=== PATIENT | female | born 1990 | race Caucasian/White ===

== ENCOUNTER 2018-06-28 23:19 | Inpatient (IN) | payer MEDICAID, OTHER ==
[~2018-06-28] VITALS: Ht 157.5 cm; Wt 53.9 kg
[~2018-06-28 23:19] MED LIST: DIVA-78 PO; LITH300C3 PO; TOPI100T37 PO; ZIPR80CA2 PO
[2018-06-28] MEDS ORDERED: LURA40 PO (23:49)
[2018-06-29 00:18] LABS: BASOPHILS % (AUTO) 0.6 % (0.0-2.0); EOSINOPHILS % (AUTO) 1.2 % (1.0-6.0); HEMATOCRIT 42.1 % (36-46); HEMOGLOBIN 13.8 g/dL (12.0-16.0); LYMPHOCYTES # (AUTO) 4.4 K/uL (1.0-4.8); LYMPHOCYTES % (AUTO) 40.4 % (22.0-44.0); MEAN CORPUSCULAR HEMOGLOBIN 28.5 pg (26.0-34.0); MEAN CORPUSCULAR HGB CONC 32.8 G/dL (31.0-37.0); MEAN CORPUSCULAR VOLUME 87 fL (80-100); MONOCYTES # (AUTO) 0.7 K/uL (0.1-1.0); MONOCYTES % (AUTO) 6.5 % (2.0-9.0); NEUTROPHILS # (AUTO) 5.6 K/uL (1.8-7.7); NEUTROPHILS % (AUTO) 51.3 % (40.0-70.0); PLATELET COUNT (AUTO) 330 K/uL (150-450); RED BLOOD CELL COUNT(AUTO) 4.83 MIL/uL (4.00-5.20); RED CELL DISTRIBUTION WIDTH 14.8 % (11.5-14.5)
[2018-06-29 00:26] LABS: AMPHET/METH SCREEN,URINE NEGATIVE (NEGATIVE); BARBITURATE SCREEN, URINE NEGATIVE (NEGATIVE); BENZODIAZEPINES SCREEN,URINE NEGATIVE (NEGATIVE); CANNABINOID SCREEN,URINE POSITIVE (NEGATIVE); COCAINE SCREEN,URINE NEGATIVE (NEGATIVE); METHADONE SCREEN, URINE NEGATIVE (NEGATIVE); OPIATE SCREEN,URINE NEGATIVE (NEGATIVE)
[2018-06-29 00:28] LABS: PHENCYCLIDINE SCREEN,URINE NEGATIVE (NEGATIVE)
[2018-06-29 00:35] LABS: ANION GAP 11 mmol/L (8-16); CALCIUM, TOTAL 8.5 mg/dL (8.8-10.5); CARBON DIOXIDE 25 mmol/L (22-29); CHLORIDE 105 mmol/L (98-107); CREATININE 0.76 mg/dL (0.60-1.30); GLOMERULAR FILTR. RATE CALC > 60 mL/min (>60); GLUCOSE,RANDOM 87 mg/dL (70-110); POTASSIUM 3.5 mmol/L (3.5-5.1); SODIUM SERUM 141 mmol/L (136-145); UREA NITROGEN, BLOOD 5 mg/dL (7-18)
[2018-06-29 00:37] LABS: LITHIUM < 0.20 mmol/L (0.60-1.20)
[2018-06-29 00:41] LABS: ALANINE AMINOTRANSFERASE 22 U/L (12-78); ALBUMIN 3.4 g/dL (3.4-5.0); ALKALINE PHOSPHATASE 54 U/L (46-116); ASPARTATE AMINOTRANSFERASE 19 U/L (15-37); BILIRUBIN,TOTAL 0.5 mg/dL (0.1-1.0); TOTAL PROTEIN, SERUM 7.4 g/dL (6.4-8.2)
[2018-06-29 00:51] LABS: VALPROIC ACID < 3 mcg/mL (50-100)
[2018-06-29] MEDS ORDERED: HALOPERIDOL LACTATE 5 MG/ML VIAL ONE (01:12)
[2018-06-29] MEDS ORDERED: DiphenhydrAMINE HCL 50 MG/ML VIAL ONE (01:12)
[2018-06-29] MEDS ORDERED: HALOPERIDOL LACTATE 5 MG/ML VIAL IM ONE ×2 (01:15→04:15)
[2018-06-29] MEDS ORDERED: DiphenhydrAMINE HCL 50 MG/ML VIAL IM ONE (01:15)
[2018-06-29] MEDS ORDERED: LORazepam 2 MG/ML VIAL IM ONE (04:15)
[2018-06-29 09:08] VITALS: BP 116/71
[2018-06-29] MEDS: ARIPiprazole 15 MG TABLET PO SCH (10:34)
[2018-06-29 15:30] VITALS: BP 103/75
[2018-06-29 17:30] VITALS: BP 113/79
[2018-06-29] MEDS: LORazepam 2 MG TABLET PO PRN (17:34)
[2018-06-29] MEDS: HALOPERIDOL 5 MG TABLET PO PRN (17:34)
[2018-06-29 18:30] VITALS: BP 108/80
[2018-06-29] MEDS ORDERED: LOPERAMIDE HCL 2 MG CAPSULE PO PRN (20:00)
[2018-06-29] MEDS ORDERED: MAGNESIUM HYDROXIDE SUSPENSION 30 ML UDCUP PO PRN (20:00)
[2018-06-29] MEDS ORDERED: PETROLATUM,WHITE 71 GM JELLY TP PRN (20:00)
[2018-06-29] MEDS ORDERED: MAG HYDROX/AL HYDROX/SIMETH ES 30 ML SUSPENSION UDCUP PO PRN (20:00)
[2018-06-29] MEDS ORDERED: CloNIDine HCL 0.1 MG TABLET PO PRN (20:00)
[2018-06-29] MEDS ORDERED: DOCUSATE SODIUM 100 MG CAPSULE PO PRN (20:00)
[2018-06-29] MEDS ORDERED: ACETAMINOPHEN 325 MG TABLET PO PRN (20:00)
[2018-06-29] MEDS ORDERED: NICOTINE 14 MG/24 HOUR PATCH TD PRN (20:00)
[2018-06-29] MEDS ORDERED: ONDANSETRON HCL 4 MG TABLET PO PRN (20:00)
[2018-06-29] MEDS ORDERED: GuaiFENesin/D-METHORPHAN [SUGAR-FREE] 200-20MG/10 ML SYRUP UDCUP PO PRN (20:00)
[2018-06-29] MEDS ORDERED: ALBUTEROL SULFATE HFA 90 MCG/PUFF 8 GM INHALER IH PRN (20:00)
[2018-06-29] MEDS ORDERED: IBUPROFEN 400 MG TABLET PO PRN (20:00)
[2018-06-29] MEDS: ZOLPIDEM TARTRATE 10 MG TABLET PO PRN (21:30)
[2018-06-29 22:30] VITALS: BP 112/72
[2018-06-30] VITALS (7 sets, daily range): BP systolic 110–118; BP diastolic 63–97
[2018-06-30] MEDS: HALOPERIDOL 5 MG TABLET PO PRN ×3 (06:20→16:07)
[2018-06-30] MEDS: LORazepam 2 MG TABLET PO PRN ×3 (06:20→16:07)
[2018-06-30] MEDS: ARIPiprazole 15 MG TABLET PO SCH (08:02)
[2018-06-30] MEDS: ZOLPIDEM TARTRATE 10 MG TABLET PO PRN (20:39)
[2018-07-01] MEDS: HALOPERIDOL 5 MG TABLET PO PRN (06:23)
[2018-07-01] MEDS: LORazepam 2 MG TABLET PO PRN (06:23)
[2018-07-01] MEDS: ARIPiprazole 15 MG TABLET PO SCH (08:10)
[2018-07-01] MEDS ORDERED: ARIP15TA2 PO (09:47)
== END 2018-07-01 11:14 | disposition home or self-care (01) | DRG 750 ==
LOC: EMS 23:19 → B3A 06-29 02:00
PROVIDERS: ADMIT Psychiatry & Neurology Psychiatry; ATTEND Psychiatry & Neurology Psychiatry
DX: F25.0 Schizoaffective disorder, bipolar type (principal); R45.851 Suicidal ideations; F41.9 Anxiety disorder, unspecified; F12.90 Cannabis use, unspecified, uncomplicated; F17.210 Nicotine dependence, cigarettes, uncomplicated; G47.00 Insomnia, unspecified; Z71.6 Tobacco abuse counseling; Z72.89 Other problems related to lifestyle; Z79.899 Other long term (current) drug therapy; Z28.21 Immunization not carried out because of patient refusal
CPT/HCPCS: 90686; 96372; 99285; G0480; J1200; J1630; J2060

== ENCOUNTER 2019-10-14 05:08 | Inpatient (IN) | payer MEDICAID, OTHER ==
[~2019-10-14] VITALS: Ht 160 cm; Wt 56.8 kg
[~2019-10-14 05:08] MED LIST changes: +ARIP15TA2 PO; -DIVA-78 PO; -LITH300C3 PO; -TOPI100T37 PO; -ZIPR80CA2 PO
[2019-10-14] MEDS ORDERED: DiphenhydrAMINE HCL 50 MG/ML VIAL IM ONE ×3 (05:30→15:45)
[2019-10-14] MEDS ORDERED: HALOPERIDOL LACTATE 5 MG/ML VIAL IM ONE ×3 (05:30→15:45)
[2019-10-14] MEDS ORDERED: LORazepam 2 MG/ML VIAL IM ONE ×3 (05:30→15:45)
[2019-10-14 06:03] LABS: AMPHET/METH SCREEN,URINE POSITIVE (NEGATIVE); BARBITURATE SCREEN, URINE NEGATIVE (NEGATIVE); BENZODIAZEPINES SCREEN,URINE POSITIVE (NEGATIVE); CANNABINOID SCREEN,URINE POSITIVE (NEGATIVE); COCAINE SCREEN,URINE NEGATIVE (NEGATIVE); METHADONE SCREEN, URINE NEGATIVE (NEGATIVE); OPIATE SCREEN,URINE NEGATIVE (NEGATIVE); PHENCYCLIDINE SCREEN,URINE NEGATIVE (NEGATIVE)
[2019-10-14] MEDS ORDERED: PERTUSS(ACELL),DIPH,TET VAC/PF 0.5 ML VIAL IM ONE (08:30)
[2019-10-14] MEDS ORDERED: ZOLPIDEM TARTRATE 10 MG TABLET PO PRN (08:45)
[2019-10-14] MEDS ORDERED: LORazepam 2 MG TABLET PO PRN (08:45)
[2019-10-14] MEDS ORDERED: OLANZapine 5 MG RAPDIS TABLET PO PRN (08:45)
[2019-10-14 10:50] VITALS: BP 145/69
[2019-10-14] MEDS ORDERED: INFLUENZA VIRUS VACCINE QVS 2019-20 (3YR+)/PF 60 MCG/0.5 ML SYRINGE IM ONE (14:15)
[2019-10-15] MEDS ORDERED: LURASIDONE HCL 40 MG TABLET PO SCH (08:15)
[2019-10-15] MEDS ORDERED: ACETAMINOPHEN 325 MG TABLET PO PRN (12:15)
[2019-10-15] MEDS ORDERED: TUBERCULIN, PURIFIED PROTEIN DERIVATIVE 5 TU/0.1 ML SYRINGE ID ONE (12:15)
[2019-10-15] MEDS ORDERED: MAG HYDROX/AL HYDROX/SIMETH ES 30 ML SUSPENSION UDCUP PO PRN (12:15)
[2019-10-15] MEDS ORDERED: ZOLPIDEM TARTRATE 10 MG TABLET PO PRN (12:15)
[2019-10-15] MEDS ORDERED: PROMETHAZINE HCL 25 MG TABLET PO PRN (12:15)
[2019-10-15] MEDS ORDERED: GuaiFENesin/D-METHORPHAN [SUGAR-FREE] 200-20MG/10 ML SYRUP UDCUP PO PRN (12:15)
[2019-10-15] MEDS ORDERED: MAGNESIUM HYDROXIDE SUSPENSION 30 ML UDCUP PO PRN (12:15)
[2019-10-15] MEDS ORDERED: LOPERAMIDE HCL 2 MG CAPSULE PO PRN (12:15)
[2019-10-15] MEDS ORDERED: HALOPERIDOL LACTATE 5 MG/ML VIAL ONE (13:53)
[2019-10-15] MEDS ORDERED: DiphenhydrAMINE HCL 50 MG/ML VIAL ONE (13:53)
[2019-10-15] MEDS ORDERED: LORazepam 2 MG/ML VIAL ONE (13:53)
[2019-10-15] MEDS ORDERED: DiphenhydrAMINE HCL 50 MG/ML VIAL IM ONE (14:15)
[2019-10-15] MEDS ORDERED: LORazepam 2 MG/ML VIAL IM ONE (14:15)
[2019-10-15] MEDS ORDERED: HALOPERIDOL LACTATE 5 MG/ML VIAL IM ONE (14:15)
[2019-10-15] MEDS: HydrOXYzine PAMOATE 50 MG CAPSULE PO PRN (16:52)
[2019-10-15] MEDS: THIAMINE HCL 100 MG TABLET PO SCH (16:52)
[2019-10-15] MEDS: HydrOXYzine HCL 50 MG TABLET PO SCH (20:35)
[2019-10-16 00:46] VITALS: BP 100/60
[2019-10-16] MEDS: DIAZEPAM 10 MG TABLET PO PRN ×3 (06:15→18:21)
[2019-10-16] MEDS ORDERED: LURASIDONE HCL 40 MG TABLET PO SCH (07:00)
[2019-10-16] MEDS: THIAMINE HCL 100 MG TABLET PO SCH ×2 (08:22→16:55)
[2019-10-16] MEDS: FOLIC ACID 1 MG TABLET PO SCH (08:22)
[2019-10-16] MEDS: MULTIVITAMINS WITH MINERALS, THERAPEUTIC TABLET PO SCH (08:22)
[2019-10-16] MEDS: NALTREXONE HCL 50 MG TABLET PO SCH (08:22)
[2019-10-16] MEDS: HydrOXYzine HCL 50 MG TABLET PO SCH (21:34)
[2019-10-17] MEDS: HydrOXYzine PAMOATE 50 MG CAPSULE PO PRN ×3 (04:13→13:44)
[2019-10-17] MEDS: DIAZEPAM 10 MG TABLET PO PRN ×3 (04:30→12:33)
[2019-10-17 04:40] VITALS: BP 103/60
[2019-10-17] MEDS ORDERED: LURASIDONE HCL 40 MG TABLET PO SCH ×2 (07:00→21:00)
[2019-10-17 08:10] VITALS: BP 116/65
[2019-10-17] MEDS: NALTREXONE HCL 50 MG TABLET PO SCH (08:22)
[2019-10-17] MEDS: FOLIC ACID 1 MG TABLET PO SCH (08:23)
[2019-10-17] MEDS: MULTIVITAMINS WITH MINERALS, THERAPEUTIC TABLET PO SCH (08:23)
[2019-10-17] MEDS: THIAMINE HCL 100 MG TABLET PO SCH ×2 (08:23→16:32)
[2019-10-17] MEDS: LURASIDONE HCL 40 MG TABLET PO PRN ×3 (09:35→16:29)
[2019-10-17 16:24] VITALS: BP 108/67
[2019-10-17] MEDS ORDERED: LURASIDONE HCL 80 MG TABLET PO SCH (21:00)
[2019-10-17] MEDS: HydrOXYzine HCL 50 MG TABLET PO SCH (21:17)
[2019-10-17] MEDS: ZOLPIDEM TARTRATE 10 MG TABLET PO SCH (21:17)
[2019-10-18] MEDS: DIAZEPAM 10 MG TABLET PO PRN ×3 (07:01→18:47)
[2019-10-18 08:09] VITALS: BP 110/62
[2019-10-18] MEDS: FOLIC ACID 1 MG TABLET PO SCH (08:31)
[2019-10-18] MEDS: MULTIVITAMINS WITH MINERALS, THERAPEUTIC TABLET PO SCH (08:31)
[2019-10-18] MEDS: THIAMINE HCL 100 MG TABLET PO SCH ×2 (08:31→16:40)
[2019-10-18] MEDS: NALTREXONE HCL 50 MG TABLET PO SCH (08:31)
[2019-10-18] MEDS: BACITRACIN 28.4 GM OINTMENT TP SCH (08:31)
[2019-10-18] MEDS: HydrOXYzine PAMOATE 50 MG CAPSULE PO PRN ×2 (10:50→14:50)
[2019-10-18] MEDS: LURASIDONE HCL 40 MG TABLET PO PRN ×2 (10:50→16:41)
[2019-10-18 16:07] VITALS: BP 102/62
[2019-10-18] MEDS: HydrOXYzine HCL 50 MG TABLET PO SCH (20:48)
[2019-10-18] MEDS: ZOLPIDEM TARTRATE 10 MG TABLET PO SCH (20:49)
[2019-10-18] MEDS ORDERED: LURASIDONE HCL 80 MG TABLET PO SCH (21:00)
[2019-10-19] MEDS: LURASIDONE HCL 40 MG TABLET PO PRN ×2 (05:06→10:24)
[2019-10-19] MEDS: MULTIVITAMINS WITH MINERALS, THERAPEUTIC TABLET PO SCH (08:06)
[2019-10-19] MEDS: THIAMINE HCL 100 MG TABLET PO SCH ×2 (08:06→16:53)
[2019-10-19] MEDS: FOLIC ACID 1 MG TABLET PO SCH (08:06)
[2019-10-19] MEDS: BACITRACIN 28.4 GM OINTMENT TP SCH (08:07)
[2019-10-19 08:14] VITALS: BP 106/68
[2019-10-19] MEDS: HydrOXYzine PAMOATE 50 MG CAPSULE PO PRN ×2 (08:28→13:10)
[2019-10-19] MEDS: DIAZEPAM 10 MG TABLET PO PRN ×2 (08:28→13:13)
[2019-10-19] MEDS: NALTREXONE HCL 50 MG TABLET PO SCH (08:44)
[2019-10-19] MEDS: LURASIDONE HCL 40 MG TABLET PO SCH (13:10)
[2019-10-19 16:00] VITALS: BP 108/70
[2019-10-19] MEDS: BENZTROPINE MESYLATE 1 MG TABLET PO SCH (16:53)
[2019-10-19] MEDS: ZOLPIDEM TARTRATE 10 MG TABLET PO SCH (20:32)
[2019-10-19] MEDS: HydrOXYzine HCL 50 MG TABLET PO SCH (20:32)
[2019-10-19] MEDS ORDERED: LURASIDONE HCL 80 MG TABLET PO SCH (21:00)
[2019-10-19] MEDS ORDERED: LURASIDONE HCL 40 MG TABLET PO PRN (23:00)
[2019-10-20] MEDS: DIAZEPAM 10 MG TABLET PO PRN ×3 (07:31→22:06)
[2019-10-20 08:03] VITALS: BP 109/58
[2019-10-20] MEDS: MULTIVITAMINS WITH MINERALS, THERAPEUTIC TABLET PO SCH (09:09)
[2019-10-20] MEDS: BENZTROPINE MESYLATE 1 MG TABLET PO SCH ×2 (09:09→16:49)
[2019-10-20] MEDS: HydrOXYzine PAMOATE 50 MG CAPSULE PO PRN (09:09)
[2019-10-20] MEDS: THIAMINE HCL 100 MG TABLET PO SCH ×2 (09:09→16:49)
[2019-10-20] MEDS: FOLIC ACID 1 MG TABLET PO SCH (09:09)
[2019-10-20] MEDS: BACITRACIN 28.4 GM OINTMENT TP SCH (09:22)
[2019-10-20] MEDS: OMEGA-3/DHA/EPA/FISH OIL 1,000 MG CAPSULE PO SCH (11:08)
[2019-10-20] MEDS: LURASIDONE HCL 40 MG TABLET PO SCH (15:13)
[2019-10-20 17:23] VITALS: BP 130/69
[2019-10-20] MEDS ORDERED: LURASIDONE HCL 40 MG TABLET PO SCH (21:00)
[2019-10-20] MEDS: ZOLPIDEM TARTRATE 10 MG TABLET PO SCH (21:03)
[2019-10-20] MEDS: HydrOXYzine HCL 50 MG TABLET PO SCH (21:03)
[2019-10-21 07:48] LABS: HEMOGLOBIN A1C 5.5 % (4.5-6.2)
[2019-10-21 08:02] LABS: ALANINE AMINOTRANSFERASE 32 U/L (12-78); ALBUMIN 2.9 g/dL (3.4-5.0); ALKALINE PHOSPHATASE 58 U/L (46-116); ANION GAP 5 mmol/L (8-16); ASPARTATE AMINOTRANSFERASE 14 U/L (15-37); BILIRUBIN,TOTAL 0.3 mg/dL (0.1-1.0); CALCIUM, TOTAL 8.8 mg/dL (8.8-10.5); CARBON DIOXIDE 29 mmol/L (22-29); CHLORIDE 105 mmol/L (98-107); CHOL/HDL RATIO 2.3 (3.9-5.7); CHOLESTEROL 151 mg/dL (131-200); CREATININE 0.88 mg/dL (0.60-1.30); FREE T4 (FREE THYROXINE) 0.94 ng/dL (0.76-1.46); GLOMERULAR FILTR. RATE CALC > 60 mL/min (>60); GLUCOSE,RANDOM 76 mg/dL (70-110); HCG,QUANTITATIVE < 1 mIU/mL (0-6); HDL CHOLESTEROL 67 mg/dL (40-60); LDL CHOL (CALC.) 71 mg/dL (0-130); POTASSIUM 4.6 mmol/L (3.5-5.1); SODIUM SERUM 139 mmol/L (136-145); THYROID STIMULATING HORMONE 2.13 uIU/mL (0.36-3.74); TOTAL PROTEIN, SERUM 6.6 g/dL (6.4-8.2); TRIGLYCERIDES 67 mg/dL (15-150); UREA NITROGEN, BLOOD 7 mg/dL (7-18)
[2019-10-21 08:06] VITALS: BP 119/66
[2019-10-21] MEDS: DIAZEPAM 10 MG TABLET PO PRN (08:09)
[2019-10-21] MEDS: THIAMINE HCL 100 MG TABLET PO SCH (08:09)
[2019-10-21] MEDS: FOLIC ACID 1 MG TABLET PO SCH (08:09)
[2019-10-21] MEDS: OMEGA-3/DHA/EPA/FISH OIL 1,000 MG CAPSULE PO SCH (08:09)
[2019-10-21] MEDS: BENZTROPINE MESYLATE 1 MG TABLET PO SCH (08:09)
[2019-10-21] MEDS: MULTIVITAMINS WITH MINERALS, THERAPEUTIC TABLET PO SCH (08:09)
[2019-10-21] MEDS: BACITRACIN 28.4 GM OINTMENT TP SCH (08:13)
[2019-10-21] MEDS: LURASIDONE HCL 40 MG TABLET PO SCH (12:35)
[2019-10-21] MEDS ORDERED: NALT50TA PO (14:12)
[2019-10-21] MEDS ORDERED: BENZ1TAB10 PO (14:12)
[2019-10-21] MEDS ORDERED: LURA40 PO (14:12)
[2019-10-21] MEDS ORDERED: OMEG-135 PO (14:12)
[2019-10-21] MEDS ORDERED: HYD50 PO (14:18)
[2019-10-21] MEDS ORDERED: DIAZEPAM 2 MG TABLET PO PRN (14:30)
[2019-10-21] MEDS ORDERED: LURASIDONE HCL 80 MG TABLET PO SCH (21:00)
[2019-10-22] MEDS ORDERED: NALTREXONE HCL 50 MG TABLET PO SCH (09:00)
[2019-10-24] MEDS ORDERED: BACITRACIN 28.4 GM OINTMENT TP PRN (09:00)
== END 2019-10-21 19:11 | disposition home or self-care (01) | DRG 740 ==
LOC: EMS 05:08 → B3A 09:39
PROVIDERS: ADMIT Psychiatry & Neurology Psychiatry; ATTEND Psychiatry & Neurology Psychiatry
PROC: 0XQHXZZ Repair Left Wrist Region, External Approach (ICD-10-PCS; principal; 2019-10-14)
DX: F25.0 Schizoaffective disorder, bipolar type (principal); E83.42 Hypomagnesemia; F30.9 Manic episode, unspecified; E87.6 Hypokalemia; F12.90 Cannabis use, unspecified, uncomplicated; F15.10 Other stimulant abuse, uncomplicated; F17.210 Nicotine dependence, cigarettes, uncomplicated; S11.91XA Laceration without foreign body of unspecified part of neck, initial encounter; S51.812A Laceration without foreign body of left forearm, initial encounter; X78.8XXA Intentional self-harm by other sharp object, initial encounter; Z91.19 Patient's noncompliance with other medical treatment and regimen; Y93.89 Activity, other specified; Y92.89 Other specified places as the place of occurrence of the external cause; Y99.8 Other external cause status; Z28.21 Immunization not carried out because of patient refusal
CPT/HCPCS: 83036; 84439; 84443; 86592; 90715; J1200; J1630; J2060; J3230

== ENCOUNTER 2019-11-05 09:23 | Inpatient (IN) | payer MEDICAID ==
[~2019-11-05] VITALS: Ht 157.5 cm; Wt 55.3 kg
[~2019-11-05 09:23] MED LIST changes: -ARIP15TA2 PO; +BENZ1TAB10 PO; +HYD50 PO; +LURA40 PO; +NALT50TA PO; +OMEG-135 PO
[2019-11-05] MEDS ORDERED: LORazepam 1 MG TABLET PO ONE (12:00)
[2019-11-05] MEDS ORDERED: LURASIDONE HCL 40 MG TABLET PO ONE (12:00)
[2019-11-05] MEDS ORDERED: MAG HYDROX/AL HYDROX/SIMETH ES 30 ML SUSPENSION UDCUP PO PRN (12:30)
[2019-11-05] MEDS ORDERED: LORazepam 2 MG TABLET PO PRN (12:30)
[2019-11-05] MEDS ORDERED: LOPERAMIDE HCL 2 MG CAPSULE PO PRN (12:30)
[2019-11-05] MEDS ORDERED: MAGNESIUM HYDROXIDE SUSPENSION 30 ML UDCUP PO PRN (12:30)
[2019-11-05] MEDS ORDERED: PROMETHAZINE HCL 25 MG TABLET PO PRN (12:30)
[2019-11-05] MEDS ORDERED: ACETAMINOPHEN 325 MG TABLET PO PRN (12:30)
[2019-11-05] MEDS ORDERED: LORazepam 1 MG TABLET PO PRN (12:30)
[2019-11-05] MEDS ORDERED: GuaiFENesin/D-METHORPHAN [SUGAR-FREE] 200-20MG/10 ML SYRUP UDCUP PO PRN (12:30)
[2019-11-05 16:21] VITALS: BP 117/71
[2019-11-05] MEDS: THIAMINE HCL 100 MG TABLET PO SCH (17:10)
[2019-11-05] MEDS ORDERED: LURASIDONE HCL 40 MG TABLET PO SCH (17:30)
[2019-11-05] MEDS: BACITRACIN 28.4 GM OINTMENT TP SCH (18:00)
[2019-11-05] MEDS: DIVALPROEX SODIUM 500 MG ER TABLET PO SCH (21:00)
[2019-11-06] MEDS: HydrOXYzine PAMOATE 50 MG CAPSULE PO PRN (08:15)
[2019-11-06] MEDS: FOLIC ACID 1 MG TABLET PO SCH (08:20)
[2019-11-06] MEDS: MULTIVITAMINS WITH MINERALS, THERAPEUTIC TABLET PO SCH (08:20)
[2019-11-06] MEDS: OMEGA-3/DHA/EPA/FISH OIL 1,000 MG CAPSULE PO SCH (08:20)
[2019-11-06] MEDS: THIAMINE HCL 100 MG TABLET PO SCH ×2 (08:20→16:42)
[2019-11-06] MEDS: NALTREXONE HCL 50 MG TABLET PO SCH (08:21)
[2019-11-06] MEDS: BACITRACIN 28.4 GM OINTMENT TP SCH (08:30)
[2019-11-06] MEDS: LURASIDONE HCL 40 MG TABLET PO PRN ×2 (10:52→21:26)
[2019-11-06] MEDS ORDERED: HALOPERIDOL LACTATE 5 MG/ML VIAL ONE ×2 (10:57)
[2019-11-06] MEDS ORDERED: DiphenhydrAMINE HCL 50 MG/ML VIAL ONE (10:58)
[2019-11-06] MEDS ORDERED: HALOPERIDOL LACTATE 5 MG/ML VIAL IM ONE (11:00)
[2019-11-06] MEDS ORDERED: DiphenhydrAMINE HCL 50 MG/ML VIAL IM ONE (11:00)
[2019-11-06] MEDS ORDERED: LORazepam 2 MG/ML VIAL ONE (11:24)
[2019-11-06] MEDS ORDERED: LORazepam 2 MG/ML VIAL IM ONE (11:30)
[2019-11-06] MEDS: LURASIDONE HCL 40 MG TABLET PO SCH (16:41)
[2019-11-06] MEDS: DIVALPROEX SODIUM 500 MG ER TABLET PO SCH (21:00)
[2019-11-07] MEDS: NALTREXONE HCL 50 MG TABLET PO SCH (09:00)
[2019-11-07] MEDS: MULTIVITAMINS WITH MINERALS, THERAPEUTIC TABLET PO SCH (09:00)
[2019-11-07] MEDS: BACITRACIN 28.4 GM OINTMENT TP SCH (09:00)
[2019-11-07] MEDS: THIAMINE HCL 100 MG TABLET PO SCH ×2 (09:00→16:42)
[2019-11-07] MEDS: OMEGA-3/DHA/EPA/FISH OIL 1,000 MG CAPSULE PO SCH (09:00)
[2019-11-07] MEDS: FOLIC ACID 1 MG TABLET PO SCH (09:00)
[2019-11-07] MEDS: HydrOXYzine PAMOATE 50 MG CAPSULE PO PRN ×2 (11:47→16:01)
[2019-11-07] MEDS: LURASIDONE HCL 40 MG TABLET PO PRN (11:47)
[2019-11-07] MEDS: LURASIDONE HCL 40 MG TABLET PO SCH (16:42)
[2019-11-08] MEDS: FOLIC ACID 1 MG TABLET PO SCH (08:13)
[2019-11-08] MEDS: OMEGA-3/DHA/EPA/FISH OIL 1,000 MG CAPSULE PO SCH (08:13)
[2019-11-08] MEDS: MULTIVITAMINS WITH MINERALS, THERAPEUTIC TABLET PO SCH (08:14)
[2019-11-08] MEDS: THIAMINE HCL 100 MG TABLET PO SCH (08:14)
[2019-11-08] MEDS ORDERED: BACITRACIN 28.4 GM OINTMENT TP PRN (09:00)
[2019-11-08] MEDS ORDERED: MULT-1239 PO (09:52)
[2019-11-08] MEDS ORDERED: THIA1002I IM (09:52)
[2019-11-08] MEDS ORDERED: FOLI1 PO (09:52)
[2019-11-08] MEDS ORDERED: LURA40 PO (09:53)
[2019-11-08 10:20] VITALS: BP 106/64
== END 2019-11-08 12:00 | disposition home or self-care (01) | DRG 885 ==
LOC: EMS 09:25 → 3EC 14:48
PROVIDERS: ADMIT Psychiatry & Neurology Psychiatry; ATTEND Psychiatry & Neurology Psychiatry
DX: F25.1 Schizoaffective disorder, depressive type (principal); R45.851 Suicidal ideations; E87.1 Hypo-osmolality and hyponatremia; D64.9 Anemia, unspecified; E78.5 Hyperlipidemia, unspecified; E87.6 Hypokalemia; F12.90 Cannabis use, unspecified, uncomplicated; F17.210 Nicotine dependence, cigarettes, uncomplicated; F41.9 Anxiety disorder, unspecified; E83.42 Hypomagnesemia; F15.10 Other stimulant abuse, uncomplicated; Z72.89 Other problems related to lifestyle; Z91.19 Patient's noncompliance with other medical treatment and regimen
CPT/HCPCS: 87081; 93005; J1200; J1630; J2060

== ENCOUNTER 2022-04-08 14:55 | Inpatient (IN) | payer BC, MEDICAID ==
[~2022-04-08 14:55] MED LIST changes: -BENZ1TAB10 PO; +FOLI-130 PO; -HYD50 PO; -LURA40 PO; +LURA40TA2 PO; +MULT-1239 PO; -NALT50TA PO; +THIA1002I IM
[2022-04-08] MEDS ORDERED: ZOLPIDEM TARTRATE 10 MG TABLET PO PRN (18:45)
[2022-04-08] MEDS ORDERED: HALOPERIDOL 5 MG TABLET PO PRN (18:45)
[2022-04-08 20:24] VITALS: BP 111/79
[2022-04-09] MEDS ORDERED: GuaiFENesin/D-METHORPHAN [SUGAR-FREE] 200-20MG/10 ML SYRUP UDCUP PO PRN (08:15)
[2022-04-09] MEDS ORDERED: CloNIDine HCL 0.1 MG TABLET PO PRN (08:15)
[2022-04-09] MEDS ORDERED: PETROLATUM,WHITE 28 GM JELLY TP PRN (08:15)
[2022-04-09] MEDS ORDERED: IBUPROFEN 400 MG TABLET PO PRN (08:15)
[2022-04-09] MEDS ORDERED: LOPERAMIDE HCL 2 MG CAPSULE PO PRN (08:15)
[2022-04-09] MEDS ORDERED: NICOTINE 14 MG/24 HOUR PATCH TD PRN (08:15)
[2022-04-09] MEDS ORDERED: ONDANSETRON HCL 4 MG TABLET PO PRN (08:15)
[2022-04-09] MEDS ORDERED: ACETAMINOPHEN 325 MG TABLET PO PRN (08:15)
[2022-04-09] MEDS ORDERED: DOCUSATE SODIUM 100 MG CAPSULE PO PRN (08:15)
[2022-04-09] MEDS ORDERED: ALBUTEROL SULFATE HFA 90 MCG/PUFF 8 GM INHALER IH PRN (08:15)
[2022-04-09] MEDS: DIVALPROEX SODIUM 500 MG DR TABLET PO SCH ×2 (09:45→20:06)
[2022-04-09] MEDS: RisperiDONE 2 MG TABLET PO SCH ×2 (09:45→20:06)
[2022-04-10 02:38] VITALS: BP 115/78
[2022-04-10] MEDS: DIVALPROEX SODIUM 500 MG DR TABLET PO SCH ×2 (09:00→20:26)
[2022-04-10] MEDS: RisperiDONE 2 MG TABLET PO SCH ×2 (09:00→20:26)
[2022-04-11] MEDS: DIVALPROEX SODIUM 500 MG DR TABLET PO SCH ×2 (07:58→21:00)
[2022-04-11] MEDS: RisperiDONE 2 MG TABLET PO SCH (07:59)
[2022-04-11] MEDS: LORazepam 2 MG TABLET PO PRN (11:58)
[2022-04-11] MEDS: ChlorproMAZINE HCL 100 MG TABLET PO SCH ×2 (17:00→21:00)
[2022-04-11] MEDS ORDERED: ChlorproMAZINE HCL 100 MG TABLET PO SCH (21:00)
[2022-04-12] MEDS: DIVALPROEX SODIUM 500 MG DR TABLET PO SCH ×2 (09:00→21:00)
[2022-04-12] MEDS: ChlorproMAZINE HCL 100 MG TABLET PO SCH ×3 (09:00→21:00)
[2022-04-13] MEDS: ChlorproMAZINE HCL 100 MG TABLET PO SCH ×3 (08:32→21:00)
[2022-04-13] MEDS: DIVALPROEX SODIUM 500 MG DR TABLET PO SCH ×2 (08:32→21:00)
[2022-04-14] MEDS: DIVALPROEX SODIUM 500 MG DR TABLET PO SCH ×2 (08:26→21:00)
[2022-04-14] MEDS: ChlorproMAZINE HCL 100 MG TABLET PO SCH ×3 (08:26→21:00)
[2022-04-15 08:11] VITALS: BP 100/60
[2022-04-15] MEDS: ChlorproMAZINE HCL 100 MG TABLET PO SCH ×3 (08:17→21:00)
[2022-04-15] MEDS: DIVALPROEX SODIUM 500 MG DR TABLET PO SCH ×2 (08:18→21:00)
[2022-04-15 12:36] LABS: GLUCOMETER DEV NAME(LOC) POC.BV
[2022-04-15] MEDS: LORazepam 2 MG TABLET PO PRN (16:46)
[2022-04-15] MEDS: MEGESTROL ACETATE 40 MG TABLET PO SCH (16:47)
[2022-04-16] MEDS: ChlorproMAZINE HCL 100 MG TABLET PO SCH ×3 (09:00→21:00)
[2022-04-16] MEDS: MEGESTROL ACETATE 40 MG TABLET PO SCH ×2 (09:00→16:03)
[2022-04-16] MEDS: DIVALPROEX SODIUM 500 MG DR TABLET PO SCH ×2 (09:00→21:00)
[2022-04-17] MEDS: ChlorproMAZINE HCL 100 MG TABLET PO SCH ×3 (09:00→21:00)
[2022-04-17] MEDS: MEGESTROL ACETATE 40 MG TABLET PO SCH ×2 (09:00→17:00)
[2022-04-17] MEDS: DIVALPROEX SODIUM 500 MG DR TABLET PO SCH ×2 (09:00→21:00)
[2022-04-18] MEDS: MEGESTROL ACETATE 40 MG TABLET PO SCH ×2 (09:00→16:57)
[2022-04-18] MEDS: DIVALPROEX SODIUM 500 MG DR TABLET PO SCH ×2 (09:00→21:00)
[2022-04-18] MEDS: ChlorproMAZINE HCL 100 MG TABLET PO SCH ×3 (09:00→21:00)
[2022-04-19] MEDS: ChlorproMAZINE HCL 100 MG TABLET PO SCH ×3 (09:00→21:00)
[2022-04-19] MEDS: DIVALPROEX SODIUM 500 MG DR TABLET PO SCH ×2 (09:00→21:00)
[2022-04-19] MEDS: MEGESTROL ACETATE 40 MG TABLET PO SCH ×2 (09:00→17:00)
[2022-04-20] MEDS: ChlorproMAZINE HCL 100 MG TABLET PO SCH ×3 (09:00→20:46)
[2022-04-20] MEDS: MEGESTROL ACETATE 40 MG TABLET PO SCH ×2 (09:00→17:00)
[2022-04-20] MEDS: DIVALPROEX SODIUM 500 MG DR TABLET PO SCH ×2 (09:00→20:46)
[2022-04-21] MEDS: ChlorproMAZINE HCL 100 MG TABLET PO SCH ×3 (09:00→21:00)
[2022-04-21] MEDS: MEGESTROL ACETATE 40 MG TABLET PO SCH ×2 (09:00→16:15)
[2022-04-21] MEDS: DIVALPROEX SODIUM 500 MG DR TABLET PO SCH ×2 (09:00→21:00)
[2022-04-22] MEDS: ChlorproMAZINE HCL 100 MG TABLET PO SCH ×3 (09:00→20:17)
[2022-04-22] MEDS: MEGESTROL ACETATE 40 MG TABLET PO SCH ×2 (09:00→16:15)
[2022-04-22] MEDS: DIVALPROEX SODIUM 500 MG DR TABLET PO SCH ×2 (09:00→20:17)
[2022-04-23] MEDS: DIVALPROEX SODIUM 500 MG DR TABLET PO SCH ×2 (09:00→21:00)
[2022-04-23] MEDS: MEGESTROL ACETATE 40 MG TABLET PO SCH ×2 (09:00→16:06)
[2022-04-23] MEDS: ChlorproMAZINE HCL 100 MG TABLET PO SCH ×3 (09:00→21:00)
[2022-04-24] MEDS: DIVALPROEX SODIUM 500 MG DR TABLET PO SCH ×2 (08:40→20:10)
[2022-04-24] MEDS: ChlorproMAZINE HCL 100 MG TABLET PO SCH ×3 (08:41→20:10)
[2022-04-24] MEDS: MEGESTROL ACETATE 40 MG TABLET PO SCH ×2 (08:41→16:20)
[2022-04-25 08:34] VITALS: BP 110/63
[2022-04-25] MEDS: ChlorproMAZINE HCL 100 MG TABLET PO SCH ×3 (08:55→20:53)
[2022-04-25] MEDS: DIVALPROEX SODIUM 500 MG DR TABLET PO SCH ×2 (08:55→20:53)
[2022-04-25] MEDS: MEGESTROL ACETATE 40 MG TABLET PO SCH ×2 (08:55→16:44)
[2022-04-25 09:02] LABS: GLUCOMETER DEV NAME(LOC) POC.BV
[2022-04-25] MEDS ORDERED: DiphenhydrAMINE HCL 50 MG/ML VIAL IM ONE (18:45)
[2022-04-25] MEDS ORDERED: LORazepam 2 MG/ML VIAL IM ONE (18:45)
[2022-04-25] MEDS ORDERED: ChlorproMAZINE HCL 50 MG/2 ML AMP IM ONE (18:45)
[2022-04-26 06:41] LABS: BASOPHILS % (AUTO) 0.5 % (0.0-2.0); EOSINOPHILS % (AUTO) 1.4 % (1.0-6.0); HEMATOCRIT 43.6 % (36-46); HEMOGLOBIN 14.5 g/dL (12.0-16.0); LYMPHOCYTES # (AUTO) 4.3 K/uL (1.0-4.8); LYMPHOCYTES % (AUTO) 53.8 % (22.0-44.0); MEAN CORPUSCULAR HGB CONC 33.3 G/dL (31.0-37.0); MEAN CORPUSCULAR VOLUME 87 fL (80-100); MONOCYTES # (AUTO) 0.6 K/uL (0.1-1.0); MONOCYTES % (AUTO) 7.2 % (2.0-9.0); NEUTROPHILS % (AUTO) 37.1 % (40.0-70.0); PLATELET COUNT (AUTO) 209 K/uL (150-450); RED BLOOD CELL COUNT(AUTO) 5.01 MIL/uL (4.00-5.20); RED CELL DISTRIBUTION WIDTH 14.1 % (11.5-14.5)
[2022-04-26 06:50] LABS: HEMOGLOBIN A1C 5.3 % (3.8-5.6)
[2022-04-26 07:53] LABS: ALBUMIN 3.7 g/dL (3.4-5.0); ALKALINE PHOSPHATASE 66 U/L (46-116); ANION GAP 11 mmol/L (8-16); ASPARTATE AMINOTRANSFERASE 16 U/L (15-37); BILIRUBIN,TOTAL 0.4 mg/dL (0.1-1.0); CALCIUM, TOTAL 9.6 mg/dL (8.8-10.5); CARBON DIOXIDE 29 mmol/L (22-29); CHLORIDE 105 mmol/L (98-107); CHOL/HDL RATIO 1.9 (3.9-5.7); CHOLESTEROL 135 mg/dL (131-200); CREATININE 0.98 mg/dL (0.60-1.30); FREE T4 (FREE THYROXINE) 0.94 ng/dL (0.76-1.46); GLUCOSE,RANDOM 93 mg/dL (70-110); HCG,QUANTITATIVE < 1 mIU/mL (0-6); HDL CHOLESTEROL 71 mg/dL (40-60); LDL CHOL (CALC.) 57 mg/dL (0-130); POTASSIUM 4.9 mmol/L (3.5-5.1); SODIUM SERUM 145 mmol/L (136-145); THYROID STIMULATING HORMONE 2.02 uIU/mL (0.36-3.74); TOTAL PROTEIN, SERUM 6.9 g/dL (6.4-8.2); TRIGLYCERIDES 36 mg/dL (15-150); UREA NITROGEN, BLOOD 11 mg/dL (7-18)
[2022-04-26 08:03] LABS: ALANINE AMINOTRANSFERASE 17 U/L (12-78); VALPROIC ACID 4 mcg/mL (50-100)
[2022-04-26 08:05] LABS: GLOMERULAR FILTR. RATE CALC > 60 mL/min (>60)
[2022-04-26] MEDS: MEGESTROL ACETATE 40 MG TABLET PO SCH ×2 (09:00→16:33)
[2022-04-26] MEDS: DIVALPROEX SODIUM 500 MG DR TABLET PO SCH ×2 (09:00→20:24)
[2022-04-26] MEDS: ChlorproMAZINE HCL 100 MG TABLET PO SCH ×3 (09:00→20:24)
[2022-04-26] MEDS: LORazepam 2 MG/ML VIAL IM PRN (16:40)
[2022-04-26] MEDS: DiphenhydrAMINE HCL 50 MG/ML VIAL IM PRN (16:41)
[2022-04-26] MEDS: HALOPERIDOL LACTATE 5 MG/ML VIAL IM PRN (16:41)
[2022-04-26 20:27] VITALS: BP 105/72
[2022-04-27] MEDS: MEGESTROL ACETATE 40 MG TABLET PO SCH ×2 (09:00→16:19)
[2022-04-27] MEDS: DIVALPROEX SODIUM 500 MG DR TABLET PO SCH ×2 (09:00→20:14)
[2022-04-27] MEDS: ChlorproMAZINE HCL 100 MG TABLET PO SCH ×3 (09:00→20:13)
[2022-04-27] MEDS: HALOPERIDOL LACTATE 5 MG/ML VIAL IM PRN (10:12)
[2022-04-27] MEDS: DiphenhydrAMINE HCL 50 MG/ML VIAL IM PRN (10:13)
[2022-04-27] MEDS: LORazepam 2 MG/ML VIAL IM PRN (10:13)
[2022-04-27] MEDS ORDERED: LORazepam 2 MG/ML VIAL IM ONE (16:15)
[2022-04-27] MEDS ORDERED: DiphenhydrAMINE HCL 50 MG/ML VIAL IM ONE (16:15)
[2022-04-27] MEDS ORDERED: HALOPERIDOL LACTATE 5 MG/ML VIAL IM ONE (16:15)
[2022-04-27] MEDS ORDERED: ChlorproMAZINE HCL 50 MG/2 ML AMP IM ONE (17:15)
[2022-04-28] MEDS: DIVALPROEX SODIUM 500 MG DR TABLET PO SCH ×2 (08:54→20:24)
[2022-04-28] MEDS: ChlorproMAZINE HCL 100 MG TABLET PO SCH ×3 (08:55→20:24)
[2022-04-28] MEDS: MEGESTROL ACETATE 40 MG TABLET PO SCH ×2 (09:00→17:00)
[2022-04-29] MEDS: MEGESTROL ACETATE 40 MG TABLET PO SCH ×2 (09:00→17:00)
[2022-04-29] MEDS: DIVALPROEX SODIUM 500 MG DR TABLET PO SCH ×2 (10:01→21:11)
[2022-04-29] MEDS: ChlorproMAZINE HCL 100 MG TABLET PO SCH ×2 (17:19→21:12)
[2022-04-30] MEDS: MEGESTROL ACETATE 40 MG TABLET PO SCH ×2 (08:45→17:00)
[2022-04-30] MEDS: ChlorproMAZINE HCL 100 MG TABLET PO SCH ×3 (08:45→23:12)
[2022-04-30] MEDS: DIVALPROEX SODIUM 500 MG DR TABLET PO SCH ×2 (08:45→21:00)
[2022-04-30] MEDS: ChlorproMAZINE HCL 50 MG/2 ML AMP IM PRN (09:08)
[2022-05-01] MEDS: DIVALPROEX SODIUM 500 MG DR TABLET PO SCH ×2 (08:53→21:00)
[2022-05-01] MEDS: ChlorproMAZINE HCL 100 MG TABLET PO SCH ×3 (08:53→21:00)
[2022-05-01] MEDS: MEGESTROL ACETATE 40 MG TABLET PO SCH ×2 (09:00→17:00)
[2022-05-01] MEDS: MAG HYDROX/AL HYDROX/SIMETH ES 30 ML SUSPENSION UDCUP PO PRN ×2 (12:21→12:24)
[2022-05-02] MEDS: DIVALPROEX SODIUM 500 MG DR TABLET PO SCH ×2 (08:39→20:56)
[2022-05-02] MEDS: MEGESTROL ACETATE 40 MG TABLET PO SCH ×2 (08:39→16:46)
[2022-05-02] MEDS: ChlorproMAZINE HCL 100 MG TABLET PO SCH ×3 (08:39→20:56)
[2022-05-02 12:52] VITALS: BP 106/70
[2022-05-03 07:57] VITALS: BP 106/69
[2022-05-03 08:00] VITALS: BP 106/69
[2022-05-03] MEDS: ChlorproMAZINE HCL 100 MG TABLET PO SCH ×3 (08:46→21:21)
[2022-05-03] MEDS: DIVALPROEX SODIUM 500 MG DR TABLET PO SCH ×2 (08:47→21:23)
[2022-05-03] MEDS: MEGESTROL ACETATE 40 MG TABLET PO SCH ×2 (09:00→17:00)
[2022-05-04] MEDS: DIVALPROEX SODIUM 500 MG DR TABLET PO SCH ×2 (08:33→21:57)
[2022-05-04] MEDS: ChlorproMAZINE HCL 100 MG TABLET PO SCH ×3 (08:33→21:57)
[2022-05-04 08:34] VITALS: BP 112/73
[2022-05-04] MEDS: MEGESTROL ACETATE 40 MG TABLET PO SCH ×2 (08:38→17:02)
[2022-05-04] MEDS ORDERED: DiphenhydrAMINE HCL 50 MG/ML VIAL ONE (19:49)
[2022-05-04] MEDS ORDERED: LORazepam 2 MG/ML VIAL ONE (19:49)
[2022-05-04] MEDS ORDERED: HALOPERIDOL LACTATE 5 MG/ML VIAL IM ONE (20:00)
[2022-05-04] MEDS ORDERED: LORazepam 2 MG/ML VIAL IM ONE (20:00)
[2022-05-04] MEDS ORDERED: DiphenhydrAMINE HCL 50 MG/ML VIAL IM ONE (20:00)
[2022-05-05 08:12] VITALS: BP 100/60
[2022-05-05] MEDS: MEGESTROL ACETATE 40 MG TABLET PO SCH ×2 (09:00→16:06)
[2022-05-05] MEDS: ChlorproMAZINE HCL 100 MG TABLET PO SCH ×3 (10:12→20:06)
[2022-05-05] MEDS: LORazepam 2 MG TABLET PO PRN (10:12)
[2022-05-05] MEDS: DIVALPROEX SODIUM 500 MG DR TABLET PO SCH ×2 (10:12→20:06)
[2022-05-05] MEDS ORDERED: LORazepam 2 MG/ML VIAL ONE (14:34)
[2022-05-05] MEDS ORDERED: DiphenhydrAMINE HCL 50 MG/ML VIAL ONE (14:36)
[2022-05-05] MEDS ORDERED: HALOPERIDOL LACTATE 5 MG/ML VIAL ONE (14:38)
[2022-05-05] MEDS ORDERED: HALOPERIDOL LACTATE 5 MG/ML VIAL IM ONE (14:45)
[2022-05-05] MEDS ORDERED: LORazepam 2 MG/ML VIAL IM ONE (14:45)
[2022-05-05] MEDS ORDERED: DiphenhydrAMINE HCL 50 MG/ML VIAL IM ONE (14:45)
[2022-05-06] MEDS: LORazepam 2 MG TABLET PO PRN (04:52)
[2022-05-06] MEDS: MEGESTROL ACETATE 40 MG TABLET PO SCH (09:00)
[2022-05-06] MEDS ORDERED: DiphenhydrAMINE HCL 25 MG CAPSULE PO ONE (10:15)
[2022-05-06] MEDS: ChlorproMAZINE HCL 100 MG TABLET PO SCH ×3 (11:14→21:42)
[2022-05-06] MEDS: DIVALPROEX SODIUM 500 MG DR TABLET PO SCH ×2 (11:15→21:42)
[2022-05-06] MEDS: MAGNESIUM HYDROXIDE SUSPENSION 30 ML UDCUP PO PRN (11:15)
[2022-05-06] MEDS: ChlorproMAZINE HCL 50 MG/2 ML AMP IM PRN (16:10)
[2022-05-07] MEDS: DIVALPROEX SODIUM 500 MG DR TABLET PO SCH ×2 (08:18→21:55)
[2022-05-07] MEDS: ChlorproMAZINE HCL 100 MG TABLET PO SCH ×3 (08:18→21:55)
[2022-05-07 08:38] VITALS: BP 108/64
[2022-05-07] MEDS ORDERED: CALCIUM CARBONATE 500 MG CHEWABLE TABLET CHEW PRN (14:45)
[2022-05-08] MEDS: ChlorproMAZINE HCL 100 MG TABLET PO SCH ×3 (09:47→20:46)
[2022-05-08] MEDS: DIVALPROEX SODIUM 500 MG DR TABLET PO SCH ×2 (09:47→20:46)
[2022-05-08] MEDS: LORazepam 2 MG TABLET PO PRN (15:05)
[2022-05-09 08:31] VITALS: BP 111/73
[2022-05-09] MEDS: LORazepam 2 MG TABLET PO PRN ×2 (08:50→17:57)
[2022-05-09] MEDS: DIVALPROEX SODIUM 500 MG DR TABLET PO SCH ×2 (08:50→20:28)
[2022-05-09] MEDS: ChlorproMAZINE HCL 100 MG TABLET PO SCH ×3 (08:50→20:28)
[2022-05-09 16:19] VITALS: BP 110/68
[2022-05-09 17:57] VITALS: BP 111/65
[2022-05-09] MEDS: MAG HYDROX/AL HYDROX/SIMETH ES 30 ML SUSPENSION UDCUP PO PRN (18:03)
[2022-05-10] MEDS: ChlorproMAZINE HCL 100 MG TABLET PO SCH ×3 (10:11→20:05)
[2022-05-10] MEDS: DIVALPROEX SODIUM 500 MG DR TABLET PO SCH ×2 (10:12→20:05)
[2022-05-10] MEDS: MAG HYDROX/AL HYDROX/SIMETH ES 30 ML SUSPENSION UDCUP PO PRN (12:39)
[2022-05-10] MEDS: LORazepam 2 MG TABLET PO PRN ×2 (13:40→20:05)
[2022-05-11] MEDS: MAG HYDROX/AL HYDROX/SIMETH ES 30 ML SUSPENSION UDCUP PO PRN (08:11)
[2022-05-11] MEDS: LORazepam 2 MG TABLET PO PRN ×2 (09:01→19:46)
[2022-05-11] MEDS: DIVALPROEX SODIUM 500 MG DR TABLET PO SCH ×2 (09:56→20:09)
[2022-05-11] MEDS: ChlorproMAZINE HCL 100 MG TABLET PO SCH ×3 (09:56→20:09)
[2022-05-11] MEDS: MAGNESIUM HYDROXIDE SUSPENSION 30 ML UDCUP PO PRN (10:39)
[2022-05-11 20:10] VITALS: BP 104/68
[2022-05-12] MEDS: ChlorproMAZINE HCL 100 MG TABLET PO SCH ×3 (07:56→21:00)
[2022-05-12] MEDS: LORazepam 2 MG TABLET PO PRN (07:56)
[2022-05-12] MEDS: DIVALPROEX SODIUM 500 MG DR TABLET PO SCH ×2 (07:57→21:00)
[2022-05-12] MEDS: MAGNESIUM HYDROXIDE SUSPENSION 30 ML UDCUP PO PRN (09:55)
[2022-05-12] MEDS ORDERED: HALOPERIDOL LACTATE 5 MG/ML VIAL ONE (10:03)
[2022-05-12] MEDS ORDERED: LORazepam 2 MG/ML VIAL ONE (10:03)
[2022-05-12] MEDS ORDERED: DiphenhydrAMINE HCL 50 MG/ML VIAL ONE (10:04)
[2022-05-12] MEDS ORDERED: DiphenhydrAMINE HCL 50 MG/ML VIAL IM ONE (10:15)
[2022-05-12] MEDS ORDERED: HALOPERIDOL LACTATE 5 MG/ML VIAL IM ONE (10:15)
[2022-05-12] MEDS ORDERED: LORazepam 2 MG/ML VIAL IM ONE (10:15)
== END 2022-05-13 02:53 | disposition home or self-care (01) | DRG 885 ==
LOC: B3A 18:32
PROVIDERS: ADMIT Psychiatry & Neurology Psychiatry; ATTEND Psychiatry & Neurology Psychiatry
DX: F31.2 Bipolar disorder, current episode manic severe with psychotic features (principal); F10.10 Alcohol abuse, uncomplicated; F41.9 Anxiety disorder, unspecified; Z20.822 Contact with and (suspected) exposure to COVID-19; F12.10 Cannabis abuse, uncomplicated; G47.00 Insomnia, unspecified; Z59.00 Homelessness unspecified
CPT/HCPCS: 80053; 80061; 80164; 83036; 84439; 84443; 84702; 85025; J1200; J1630; J2060; J3230; Q0162

== ENCOUNTER 2022-12-28 10:51 | Inpatient (IN) | payer MEDICARE, MEDICAID ==
[~2022-12-28] VITALS: Ht 157.5 cm; Wt 66.0 kg
[2022-12-28] MEDS ORDERED: ZOLPIDEM TARTRATE 10 MG TABLET PO PRN (11:15)
[2022-12-28] MEDS ORDERED: HALOPERIDOL 5 MG TABLET PO PRN (11:15)
[2022-12-28 13:54] VITALS: BP 120/85
[2022-12-28] MEDS: LORazepam 2 MG TABLET PO PRN ×2 (16:14→21:09)
[2022-12-28] MEDS ORDERED: HALOPERIDOL LACTATE 5 MG/ML VIAL ONE (16:37)
[2022-12-28] MEDS ORDERED: DiphenhydrAMINE HCL 50 MG/ML VIAL ONE (16:37)
[2022-12-28] MEDS ORDERED: DiphenhydrAMINE HCL 50 MG/ML VIAL IM ONE ×2 (16:45→23:30)
[2022-12-28] MEDS ORDERED: LORazepam 2 MG/ML VIAL IM ONE ×2 (16:45→23:30)
[2022-12-28] MEDS ORDERED: HALOPERIDOL LACTATE 5 MG/ML VIAL IM ONE ×2 (16:45→23:30)
[2022-12-28] MEDS ORDERED: ACETAMINOPHEN 325 MG TABLET PO PRN (23:45)
[2022-12-28] MEDS ORDERED: ONDANSETRON HCL 4 MG TABLET PO PRN (23:45)
[2022-12-28] MEDS ORDERED: LOPERAMIDE HCL 2 MG CAPSULE PO PRN (23:45)
[2022-12-28] MEDS ORDERED: BACITRACIN 28 GM OINTMENT TP PRN (23:45)
[2022-12-28] MEDS ORDERED: MAGNESIUM HYDROXIDE SUSPENSION 30 ML UDCUP PO PRN (23:45)
[2022-12-28] MEDS ORDERED: IBUPROFEN 600 MG TABLET PO PRN (23:45)
[2022-12-28] MEDS ORDERED: OMEPRAZOLE 20 MG CAPSULE PO PRN (23:45)
[2022-12-28] MEDS ORDERED: CloNIDine HCL 0.1 MG TABLET PO PRN (23:45)
[2022-12-28] MEDS ORDERED: ALBUTEROL SULFATE HFA 90 MCG/PUFF 8 GM INHALER IH PRN (23:45)
[2022-12-28] MEDS ORDERED: MAG HYDROX/AL HYDROX/SIMETH ES 30 ML SUSPENSION UDCUP PO PRN (23:45)
[2022-12-28] MEDS ORDERED: PETROLATUM,WHITE 28 GM JELLY TP PRN (23:45)
[2022-12-29 08:40] VITALS: BP 119/66
[2022-12-29] MEDS: OMEGA-3/DHA/EPA/FISH OIL 1,000 MG CAPSULE PO SCH (08:42)
[2022-12-29] MEDS: MULTIVITAMINS WITH MINERALS, THERAPEUTIC TABLET PO SCH (08:42)
[2022-12-29] MEDS: LORazepam 2 MG TABLET PO PRN ×2 (08:47→12:56)
[2022-12-29] MEDS: DOCUSATE SODIUM 100 MG CAPSULE PO PRN (12:47)
[2022-12-29] MEDS: BENZOCAINE/MENTHOL LOZENGE PO PRN (20:11)
[2022-12-29] MEDS: LURASIDONE HCL 80 MG TABLET PO SCH (20:46)
[2022-12-29] MEDS: LITHIUM CARBONATE 300 MG CAPSULE PO SCH (20:53)
[2022-12-30 07:53] LABS: APPEARANCE,URINE CLEAR (CLEAR); BILIRUBIN,URINE NEGATIVE (NEGATIVE); GLUCOSE, URINE (UA) NEGATIVE (NEGATIVE); KETONES,URINE NEGATIVE (NEGATIVE); LEUKOCYTE ESTERASE ,URINE NEGATIVE (NEGATIVE); NITRATE,URINE NEGATIVE (NEGATIVE); OCCULT BLOOD,URINE NEGATIVE (NEGATIVE); PROTEIN,URINE NEGATIVE (NEGATIVE); SPECIFIC GRAVITIY, URINE 1.005 (1.003-1.030); UROBILINOGEN,URINE <=1.0 mg/dL (<=1.0)
[2022-12-30 07:58] LABS: AMPHET/METH SCREEN,URINE NEGATIVE (NEGATIVE); BARBITURATE SCREEN, URINE NEGATIVE (NEGATIVE); BENZODIAZEPINES SCREEN,URINE NEGATIVE (NEGATIVE); CANNABINOID SCREEN,URINE NEGATIVE (NEGATIVE); COCAINE SCREEN,URINE NEGATIVE (NEGATIVE); METHADONE SCREEN, URINE NEGATIVE (NEGATIVE); OPIATE SCREEN,URINE NEGATIVE (NEGATIVE); PHENCYCLIDINE SCREEN,URINE NEGATIVE (NEGATIVE)
[2022-12-30 08:23] VITALS: BP 111/72
[2022-12-30] MEDS: MULTIVITAMINS WITH MINERALS, THERAPEUTIC TABLET PO SCH (08:35)
[2022-12-30] MEDS: OMEGA-3/DHA/EPA/FISH OIL 1,000 MG CAPSULE PO SCH (08:35)
[2022-12-30] MEDS: LITHIUM CARBONATE 300 MG CAPSULE PO SCH ×2 (08:35→20:14)
[2022-12-30] MEDS: OXcarbazepine 300 MG TABLET PO SCH ×2 (08:35→17:26)
[2022-12-30] MEDS: LORazepam 2 MG TABLET PO PRN ×2 (10:53→17:26)
[2022-12-30] MEDS: DOCUSATE SODIUM 100 MG CAPSULE PO PRN (12:05)
[2022-12-30 20:00] VITALS: BP 133/82
[2022-12-30] MEDS: LURASIDONE HCL 80 MG TABLET PO SCH (20:14)
[2022-12-31 08:03] VITALS: BP 132/84
[2022-12-31] MEDS: LORazepam 2 MG TABLET PO PRN ×2 (08:40→12:41)
[2022-12-31] MEDS: DOCUSATE SODIUM 100 MG CAPSULE PO PRN (08:40)
[2022-12-31] MEDS: OXcarbazepine 300 MG TABLET PO SCH ×2 (08:41→16:34)
[2022-12-31] MEDS: LITHIUM CARBONATE 300 MG CAPSULE PO SCH ×2 (08:41→20:28)
[2022-12-31] MEDS: OMEGA-3/DHA/EPA/FISH OIL 1,000 MG CAPSULE PO SCH (08:41)
[2022-12-31] MEDS: MULTIVITAMINS WITH MINERALS, THERAPEUTIC TABLET PO SCH (08:41)
[2022-12-31 08:42] VITALS: BP 117/75
[2022-12-31] MEDS: BENZOCAINE/MENTHOL LOZENGE PO PRN (09:06)
[2022-12-31 10:46] LABS: GLUCOMETER DEV NAME(LOC) POC.BV
[2022-12-31] MEDS: LURASIDONE HCL 80 MG TABLET PO SCH (20:28)
[2023-01-01 07:31] LABS: LITHIUM 0.23 mmol/L (0.60-1.20)
[2023-01-01 07:52] LABS: ALANINE AMINOTRANSFERASE 83 U/L (12-78); ALKALINE PHOSPHATASE 76 U/L (46-116); ANION GAP 4 mmol/L (8-16); ASPARTATE AMINOTRANSFERASE 32 U/L (15-37); CALCIUM, TOTAL 8.7 mg/dL (8.8-10.5); CARBON DIOXIDE 28 mmol/L (22-29); CHLORIDE 105 mmol/L (98-107); CHOL/HDL RATIO 2.4 (3.9-5.7); CHOLESTEROL 154 mg/dL (131-200); CREATININE 0.48 mg/dL (0.60-1.30); FREE T4 (FREE THYROXINE) 0.58 ng/dL (0.76-1.46); GLOMERULAR FILTR. RATE CALC > 60 mL/min (>60); GLUCOSE,RANDOM 87 mg/dL (70-110); HCG,QUANTITATIVE < 1 mIU/mL (0-6); HDL CHOLESTEROL 65 mg/dL (40-60); LDL CHOL (CALC.) 78 mg/dL (0-130); POTASSIUM 4.8 mmol/L (3.5-5.1); SODIUM SERUM 137 mmol/L (136-145); THYROID STIMULATING HORMONE 1.53 uIU/mL (0.36-3.74); TOTAL PROTEIN, SERUM 6.2 g/dL (6.4-8.2); TRIGLYCERIDES 57 mg/dL (15-150); UREA NITROGEN, BLOOD 8 mg/dL (7-18)
[2023-01-01 07:53] LABS: BILIRUBIN,TOTAL < 0.1 mg/dL (0.1-1.0)
[2023-01-01] MEDS ORDERED: LURA80TA2 PO (08:01)
[2023-01-01] MEDS ORDERED: OXCA300T70 PO (08:01)
[2023-01-01] MEDS ORDERED: LITH300C3 PO (08:01)
[2023-01-01] MEDS: LITHIUM CARBONATE 300 MG CAPSULE PO SCH (09:02)
[2023-01-01] MEDS: OXcarbazepine 300 MG TABLET PO SCH (09:02)
[2023-01-01] MEDS: MULTIVITAMINS WITH MINERALS, THERAPEUTIC TABLET PO SCH (09:02)
[2023-01-01] MEDS: OMEGA-3/DHA/EPA/FISH OIL 1,000 MG CAPSULE PO SCH (09:02)
== END 2023-01-01 10:36 | disposition home or self-care (01) | DRG 885 ==
LOC: B2X 13:16
PROVIDERS: ADMIT Psychiatry & Neurology Psychiatry; ATTEND Psychiatry & Neurology Psychiatry
DX: F31.9 Bipolar disorder, unspecified (principal); Z20.822 Contact with and (suspected) exposure to COVID-19; F41.9 Anxiety disorder, unspecified; G47.00 Insomnia, unspecified; K59.00 Constipation, unspecified; F12.90 Cannabis use, unspecified, uncomplicated; F10.90 Alcohol use, unspecified, uncomplicated
CPT/HCPCS: 80053; 80061; 80178; 80307; 81003; 84436; 84439; 84443; 84702; 86592; G0480; J1200; J1630; J2060